=== PATIENT | female | born 1960 | race Caucasian/White ===

== ENCOUNTER → 2024-03-19 07:33 | Outpatient (REF) | payer BC, SELFPAY ==
[2024-03-19 10:33] LABS: ALT (SGPT) 14 U/L (0-35); AST (SGOT) 23 U/L (14-36); Albumin 4.6 g/dl (3.5-5.0); Alkaline Phosphatase 87 U/L (38-126); Blood Urea Nitrogen 9 mg/dl (7-17); Calcium 10.1 mg/dl (8.4-10.2); Carbon Dioxide 26 mmol/L (22-30); Chloride 102 mmol/L (98-107); Glucose 92 mg/dl (70-99); Potassium 5.1 mmol/L (3.5-5.1); Sodium 136 mmol/L (135-145); Total Bilirubin 0.6 mg/dl (0.2-1.3); Total Protein 7.8 g/dl (6.3-8.2); eGFR > 60.00
== END ==
LOC: PAVMRI 07:33
PROVIDERS: ATTENDING PHYSICIAN Urology; FAMILY PHYSICIAN Family Medicine
DX: Z85.528 Personal history of other malignant neoplasm of kidney (principal)
CPT/HCPCS: 36415; 71046; 74183; 80053; A9575

== ENCOUNTER → 2024-08-30 08:54 | Outpatient (REF) | payer BC, SELFPAY | LOC: UCDH 08:54 | PROVIDERS: ATTENDING PHYSICIAN Physician Assistant Medical; FAMILY PHYSICIAN Family Medicine | DX: M79.671 Pain in right foot (principal) | CPT/HCPCS: 73630 ==

== ENCOUNTER → 2025-01-07 07:24 | Outpatient (REF) | payer MEDICARE, OTHER, SELFPAY ==
[2025-01-07 10:09] LABS: ALT (SGPT) 18 U/L (0-35); AST (SGOT) 24 U/L (14-36); Albumin 4.5 g/dl (3.5-5.0); Alkaline Phosphatase 83 U/L (38-126); Blood Urea Nitrogen 8 mg/dl (7-17); Calcium 9.6 mg/dl (8.4-10.2); Carbon Dioxide 31 mmol/L (22-30); Chloride 99 mmol/L (98-107); Glucose 80 mg/dl (70-99); Potassium 4.5 mmol/L (3.5-5.1); Sodium 136 mmol/L (135-145); Total Bilirubin 0.7 mg/dl (0.2-1.3); Total Protein 7.4 g/dl (6.3-8.2); eGFR > 60.00
== END ==
LOC: HWRAD 07:24
PROVIDERS: ATTENDING PHYSICIAN Urology; FAMILY PHYSICIAN Family Medicine
DX: Z85.528 Personal history of other malignant neoplasm of kidney (principal)
CPT/HCPCS: 36415; 71046; 76775; 80053

== ENCOUNTER 2025-05-06 07:32 | Emergency (ER) | payer MEDICARE, OTHER, SELFPAY ==
[2025-05-06 07:35] VITALS: BP 124/71
--- NOTE | 2025-05-06 08:09 | ED.GENMED ---
History of Present Illness
General
Chief Complaint: Skin Problem
Source: patient
Time Seen by Provider: 05/06/25 07:38
History of Present Illness
History of Present Illness:
Note:
CHIEF COMPLAINT(S)
Stepped on a sharp object with the left foot.
HISTORY OF PRESENT ILLNESS
The patient is a 65-year-old female who presented with left foot pain after stepping on a sharp shell two weeks ago. The patient reports initially not noticing much bleeding, but upon examination of the surface, identified it as a jagged shell.
Subsequently, the patient began experiencing persistent discomfort and suspects there is a retained foreign body. The patient denies any symptoms of infection including redness, streaking, or swelling. The discomfort persists, primarily when the
area is pressed.
Past History
Past History
ED Past Medical History: Arrthythmia (PAF, takes atenolol prn, no thinners), Cancer, GERD and Psychiatric (Anxiety)
ED Past Surgical History: (16 years ago.) and Other
Patient has exhibited threatening behavior?: No
Social History
Tobacco: Non-smoker
Alcohol: None
Drug: None
Personal:
Living: with family
Employment: Employed
Family History
Family History: CAD and Other (CVA)
Review of Systems
Review of Systems
All Other Systems: ROS reviewed and negative except as documented in HPI and ROS
Phy Exam
Physical Exam
Physical Exam:
GENERAL: Alert , in no apparent distress
EYE: conjunctiva clear
Head: Normocephalic atraumatic
NECK: Supple,
ENT: mmm.
LUNGS: no acute respiratory distress
NEUROLOGICAL: Alert and oriented
SKIN: Warm and dry, skin intact. no overlying erythema, edema, ecchymosis. There is a small puncture area noted to the mid foot at the 3-4th metatarsal. tenderness but no obvious FB palpated
MUSCULOSKELETAL: well perfused.
PSYCH: Normal and appropriate interaction.
Scores
Heart Failure Risk
Heart Failure Risk Score: Not Applicable
Heart Score for Chest Pain Patients
STEMI patient?: Not applicable
Withdrawal Assessment of Alcohol
Withdrawal Assessment Completed?: Not applicable
Course
Orders/Labs/Results
Orders:
Orders
05/06/25 07:39
CR Foot - Left Min 3 Views Urgent
Comment:
Reason For Exam: pain, possible foreign body
Vital Signs
Initial and Last Documented VS:
Initial Vital Signs
Temp Pulse Resp BP Pulse Ox
97.7 F 69 16 124/71 98
05/06/25 07:35 05/06/25 07:35 05/06/25 07:35 05/06/25 07:35 05/06/25 07:35
Last Documented Vital Signs
Temp Pulse Resp BP Pulse Ox
97.7 F 69 16 124/71 98
05/06/25 07:35 05/06/25 07:35 05/06/25 07:35 05/06/25 07:35 05/06/25 07:35
MDM/Problems Addressed
Differential Diagnosis Includes:
1. Retained foreign body
2. Soft tissue infection
3. Cellulitis
4. Abscess
5. Osteomyelitis
6. Puncture wound
7. Tendinitis
MDM/Problems Addressed:
1. X-ray of the left foot confirmed foreign body within the midfoot approximately half a centimeter to 1 cm deep
2. Referral to a health information internship for potential removal of the foreign body. Will notify via [facility] text
3. Discuss potential use of antibiotics with the health information internship, although currently deemed unnecessary due to the absence of infection signs.
4. Pain management with Motrin (ibuprofen) or Tylenol (acetaminophen) as needed.
*Radiology
Radiology exam reviewed: preliminary read by ED provider (Foreign body noted to the left midfoot)
*Pulse Oximetry
Patient hypoxic: no
Comment: 98
*Critical Care Note
Total Time (30-74mins, 75-104mins- exclusive of procedures): Not Applicable
Patient Management
Discussion with other providers: Instructional Supervisor
Escalation/DeEscalation of care consider admission/obs:
Case was discussed with podiatry who will follow-up with the patient on an outpatient basis. Recommends Epsom salt soaks to help drawl out the foreign body. No antibiotics needed. Patient stable for discharge home. Advised on return precautions
to the ER.
ED Attending Note
-
Portions of this chart may have been created with voice recognition software.� Occasional wrong word or��sound alike� substitutions may have occurred due to the inherent limitations of voice recognition software.
Discharge Plan
Departure
Patient Disposition: Home (Routine Discharge)
Date of Disposition: 05/06/25
Time of Disposition: 08:10
Patient with high blood pressure during this ER visit?: No
Discharge Problem:
Foreign body in foot, left
Instructions: Foreign Body in Skin ED
Prescriptions:
No Action
fluoxetine 20 MG capsule
20 mg PO DAILY
apixaban [Eliquis] 5 MG tablet
5 mg PO BID Qty: 60 0RF
metoprolol succinate [Toprol XL] 25 MG tablet extended release 24 hr
25 mg PO QPM
lovastatin [Altoprev] 20 MG tablet extended release 24 hr
20 mg PO QPM
B complex-vitamin C-folic acid 400 MCG tablet
400 mcg PO DAILY
calcium carb-D3-mag ox-zinc ox [Sunil Mag Zinc Plus D3] 1 EACH tablet
1 ea PO DAILY
flecainide 50 MG tablet
50 mg PO DAILYPRN PRN (Reason: a fib)
Referrals:
Fercho Perry DPM [[facility], Podiatry]
Interventions
Interventions:
*Risk Screen - Suicide Last Done: 05/06/25 07:35
*Neglect/Abuse Screening Last Done: 05/06/25 07:35
*Nursing Disposition Last Done: 05/06/25 08:17
Discharge Date and Time
Print Language: MAURITIAN
== END 2025-05-06 08:18 | disposition home or self-care (01) ==
LOC: EMR 07:32
PROVIDERS: EMERGENCY PHYSICIAN Student in an Organized Health Care Education/Training Program; FAMILY PHYSICIAN Family Medicine
DX: S90.852A Superficial foreign body, left foot, initial encounter (principal); W45.8XXA Other foreign body or object entering through skin, initial encounter
CPT/HCPCS: 99283; 73630

== ENCOUNTER → 2025-08-02 08:54 | Outpatient (REF) | payer MEDICARE, OTHER, SELFPAY ==
[2025-08-02 09:49] LABS: Hematocrit 41.8 % (37.0-47.0); Hemoglobin 13.9 g/dL (12.0-16.0); Mean Corp Hgb Conc. 33.3 g/dL (33.0-37.0); Mean Corpuscular Volume 95.4 fL (81.0-99.0); Nucleated Red Blood Cells % 0 %; Platelet Count 299 10^3/uL (130-400); Red Cell Dist. Width 12.2 % (11.5-14.5)
[2025-08-02 15:00] LABS: ALT (SGPT) 21 U/L (0-35); AST (SGOT) 25 U/L (14-36); Albumin 4.7 g/dl (3.5-5.0); Alkaline Phosphatase 76 U/L (38-126); Blood Urea Nitrogen 13 mg/dl (7-17); Calcium 9.8 mg/dl (8.4-10.2); Carbon Dioxide 27 mmol/L (22-30); Chloride 103 mmol/L (98-107); Glucose 79 mg/dl (70-99); Potassium 5.2 mmol/L (3.5-5.1); Sodium 136 mmol/L (135-145); Total Protein 7.9 g/dl (6.3-8.2); eGFR > 60.00
== END ==
LOC: REG 08:54
PROVIDERS: ATTENDING PHYSICIAN Podiatrist Foot Surgery; FAMILY PHYSICIAN Family Medicine
DX: S90.852D Superficial foreign body, left foot, subsequent encounter (principal)
CPT/HCPCS: 36415; 80053; 85025